=== PATIENT | female | born 1970 | race American Indian/Alaskan Native ===

== ENCOUNTER 2023-12-17 09:11 | Emergency (ER) | payer OTHER ==
[2023-12-17] MEDS: Acetaminophen/HYDROcodone 325-5 MG Tab PO ONE (09:38)
[2023-12-17 09:44] VITALS: BP 119/72; PULSE 75
== END 2023-12-17 10:31 | disposition home or self-care (01) ==
LOC: DL.ED 09:11
DX: S52.502A Unspecified fracture of the lower end of left radius, initial encounter for closed fracture (principal); S05.12XA Contusion of eyeball and orbital tissues, left eye, initial encounter; F17.210 Nicotine dependence, cigarettes, uncomplicated; Z88.8 Allergy status to other drugs, medicaments and biological substances; W01.0XXA Fall on same level from slipping, tripping and stumbling without subsequent striking against object, initial encounter
CPT/HCPCS: 29125; 99283; A9270